=== PATIENT | female | born 1940 | race Caucasian/White ===

== ENCOUNTER 2017-10-06 17:06 | Inpatient (IN) | payer OTHER ==
[~2017-10-06] VITALS: Ht 160 cm; Wt 59.0 kg
[2017-10-06] MEDS ORDERED: NEXIUM40 MG ORAL (17:27)
[2017-10-06] MEDS ORDERED: URECHOLINE50 MG ORAL (17:27)
[2017-10-06] MEDS ORDERED: PERCOCET 5-3251 EACH ORAL (17:27)
[2017-10-06] MEDS ORDERED: lopressor PO (17:27)
[2017-10-06] MEDS ORDERED: ACIDOPHILUS LA1 EAC1 ORAL (17:27)
[2017-10-06] MEDS ORDERED: ATORVASTATIN CA10 MG ORAL (17:27)
[2017-10-06] MEDS ORDERED: DOCUSATE SODIU100 MG ORAL (17:27)
[2017-10-06] MEDS ORDERED: LOTENSIN20 MG ORAL (17:27)
[2017-10-06] MEDS ORDERED: TERAZOSIN HCL1 MG ORAL (17:27)
[2017-10-06] MEDS ORDERED: XARELTO10 MG ORAL (17:27)
[2017-10-06] MEDS ORDERED: BISACODYL10 M1 RC (17:31)
[2017-10-06] MEDS ORDERED: BACLOFEN10 MG ORAL (17:31)
[2017-10-06] MEDS ORDERED: ZOFRAN4 M3 ORAL (17:31)
[2017-10-06] MEDS ORDERED: apresoline PO (17:31)
[2017-10-06] MEDS ORDERED: LACTULOSE20 GM/301 ORAL (17:31)
[2017-10-06] MEDS ORDERED: NOVOLIN R100 UNIT/1 SUBQ (17:32)
[2017-10-06] MEDS ORDERED: DAPTOMYCIN500 MG IV (17:38)
[2017-10-06] MEDS ORDERED: PRO STAT SUGAR FREE PO (17:38)
[2017-10-06] MEDS ORDERED: CRANBERRY450 M4 PO (17:39)
[2017-10-06] MEDS ORDERED: DIGOXIN125 MCG ORAL (17:39)
[2017-10-06] MEDS ORDERED: LANTUS SOL100 UNIT/1 SUBQ (17:39)
[2017-10-06] MEDS ORDERED: SOLARAZE100 GM TP (17:39)
[2017-10-06] MEDS ORDERED: MULTIVITAMINS1 EAC8 ORAL (17:39)
[2017-10-06] MEDS ORDERED: HPN PO (17:39)
--- NOTE | 2017-10-06 17:46 | Emergency Room Report ---
History of Present Illness General Chief Complaint: Female Urogenital Problems Source: Medical Record, EMS Present Illness HPI 76-year-old female presents ED for evaluation. Patient of shelter. Complains of burning urination x1 day. Denies fevers or chills. Denies flank pain. Denies nausea or vomiting. Denies chest pain or shortness of breath. No other aggravating relieving factors. Denies any other associated symptoms Allergies: Coded Allergies: No Known Allergies (Unverified , 10/06/17) Patient History Past Medical History: DM, HTN Past Surgical History: none Pertinent Family History: none Social History: Denies: smoking, alcohol use, drug use Now: No Immunizations: UTD Reviewed Nursing Documentation: PMH: Agreed, PSxH: Agreed Nursing Documentation-PMH Past Medical History: No History, Except For Hx Cardiac Problems: Yes - CHF, AFib, High Cholesterol, Anemia Hx Hypertension: Yes Hx Diabetes: Yes Hx Dialysis: No - Urine retention Review of Systems All Other Systems: negative except mentioned in HPI Physical Exam Vital Signs Date Time Temp Pulse Resp B/P (MAP) Pulse Ox O2 Delivery O2 Flow Rate FiO2 10/06/17 17:09 98.7 62 18 127/69 95 Room Air 98.8 Sp02 EP Interpretation: reviewed, normal General Appearance: no apparent distress, alert, GCS 15, non-toxic Head: normocephalic, atraumatic Eyes: bilateral eye normal inspection, bilateral eye PERRL ENT: hearing grossly normal, normal pharynx, no angioedema, normal voice Neck: full range of motion, supple/symm/no masses Respiratory: chest non-tender, lungs clear, normal breath sounds, speaking full sentences Cardiovascular #1: regular rate, rhythm, no edema Cardiovascular #2: 2+ carotid (R), 2+ carotid (L), 2+ radial (R), 2+ radial (L) , 2+ dorsalis pedis (R), 2+ dorsalis pedis (L) Gastrointestinal: normal bowel sounds, non tender, soft, non-distended, no guarding, no rebound Rectal: deferred Genitourinary: normal inspection, no CVA tenderness Musculoskeletal: back normal, gait/station normal, normal range of motion, non- tender Neurologic: alert, oriented x3, responsive, sensory intact, speech normal Psychiatric: judgement/insight normal, memory normal, mood/affect normal, no suicidal/homicidal ideation Reflexes: 3+ bicep (R), 3+ bicep (L), 3+ tricep (R), 3+ tricep (L), 3+ knee (R) , 3+ knee (L) Skin: normal color, no rash, warm/dry, well hydrated Lymphatic: no adenopathy Medical Decision Making Diagnostic Impression: Primary Impression: Dehydration Additional Impressions: UTI (urinary tract infection) Qualified Codes: N39.0 - Urinary tract infection, site not specified Anemia Qualified Codes: D64.9 - Anemia, unspecified ER Course Hospital Course 76-year-old female presenting to ED with generalized weakness, dysuria Differential diagnoses include: Pneumonia, UTI, sepsis, dehydration, AR/ unstable angina Clinical course Patient placed on stretcher. On lunchroom monitor with stable vitals are ED course. After initial history and physical, I ordered labs, IV fluids, EKG, chest x-ray, blood cultures, UA. Labs -Na 128, noted leukocytosis, Hb/hct 8/24.6, troponins negative, UA grossly positive for UTI EKG - afib, no acute ischemic changes interpreted bym e CXR - no acute process , cardiomegaly IVFs given, Abx given. Case discussed with Dr Bethea and they agreed to admit patient to their service for further care and support I feel this is a highly complex case requiring extensive working including EKG/ Rhythm strip, Xray/CT/US, Blood/urine lab work, repeat exams while in ED, and administration of strong opiates/narcotics for pain control, admission to hospital or close patient follow up. Diagnosis - UTI, dehydration, anemia Patient admitted to floor in serious condition Labs Test 10/06/17 18:10 10/06/17 18:45 White Blood Count 12.6 K/UL (4.8-10.8) Red Blood Count 3.20 M/UL (4.20-5.40) Hemoglobin 8.0 G/DL (12.0-16.0) Hematocrit 24.6 % (37.0-47.0) Mean Corpuscular Volume 77 FL (80-99) Mean Corpuscular Hemoglobin 25.0 PG (27.0-31.0) Mean Corpuscular Hemoglobin Concent 32.4 G/DL (32.0-36.0) Red Cell Distribution Width 16.2 % (11.6-14.8) Platelet Count 429 K/UL (150-450) Mean Platelet Volume 5.7 FL (6.5-10.1) Neutrophils (%) (Auto) 72.6 % (45.0-75.0) Lymphocytes (%) (Auto) 17.4 % (20.0-45.0) Monocytes (%) (Auto) 7.0 % (1.0-10.0) Eosinophils (%) (Auto) 2.4 % (0.0-3.0) Basophils (%) (Auto) 0.6 % (0.0-2.0) Sodium Level 128 MMOL/L (136-145) Potassium Level 4.6 MMOL/L (3.5-5.1) Chloride Level 97 MMOL/L (98-107) Carbon Dioxide Level 26 MMOL/L (21-32) Anion Gap 5 mmol/L (5-15) Blood Urea Nitrogen 20 mg/dL (7-18) Creatinine 1.2 MG/DL (0.55-1.30) Estimat Glomerular Filtration Rate mL/min (>60) Glucose Level 110 MG/DL (74-106) Lactic Acid Level 0.60 mmol/L (0.66-2.22) Calcium Level 8.1 MG/DL (8.5-10.1) Total Bilirubin 0.3 MG/DL (0.2-1.0) Aspartate Amino Transf (AST/SGOT) 12 U/L (15-37) Alanine Aminotransferase (ALT/SGPT) 6 U/L (12-78) Alkaline Phosphatase 94 U/L (46-116) Total Creatine Kinase 16 U/L (26-308) Creatine Kinase MB 0.6 NG/ML (0.0-3.6) Creatine Kinase MB Relative Index 3.7 Troponin I 0.001 ng/mL (0.000-0.056) Pro-B-Type Natriuretic Peptide 71305 pg/mL (0-125) Total Protein 6.7 G/DL (6.4-8.2) Albumin 1.5 G/DL (3.4-5.0) Globulin 5.2 g/dL Albumin/Globulin Ratio 0.3 (1.0-2.7) Urine Color Yellow Urine Appearance Slightly cloudy Urine pH 8 (4.5-8.0) Urine Specific [place] 1.010 (1.005-1.035) Urine Protein 3+ (NEGATIVE) Urine Glucose (UA) Negative (NEGATIVE) Urine Ketones Negative (NEGATIVE) Urine Occult Blood 4+ (NEGATIVE) Urine Nitrite Negative (NEGATIVE) Urine Bilirubin Negative (NEGATIVE) Urine Urobilinogen Normal MG/DL (0.0-1.0) Urine Leukocyte Esterase 3+ (NEGATIVE) Urine RBC 15-20 /HPF (0 - 2) Urine WBC 10-15 /HPF (0 - 2) Urine Squamous Epithelial Cells Few /LPF (NONE/OCC) Urine Amorphous Sediment Few /LPF (NONE) Urine Bacteria Moderate /HPF (NONE) EKG Diagnostic Results Rate: normal Rhythm: other - afib ST Segments: no acute changes ASA given to the pt in ED: No Rhythm Strip Diag. Results Rhythm: no PVC's, no ectopy Chest X-Ray Diagnostic Results Chest X-Ray Diagnostic Results : Chest X-Ray Ordered: Yes # of Views/Limited/Complete: 1 View Indication: Other - weakness EP Interpretation: Yes Interpretation: no consolidation, no effusion, no pneumothorax Impression: Other - cardiomealy Electronically Signed by: Electronically signed by Mike Barkley MD Last Vital Signs Date Time Temp Pulse Resp B/P (MAP) Pulse Ox O2 Delivery O2 Flow Rate FiO2 10/06/17 17:09 98.7 62 18 127/69 95 Room Air 98.8 Status: improved Disposition: ADMITTED INPATIENT Condition: Serious MIKE BARKLEY M.D. Oct 06, 2017 17:46
[2017-10-06 18:47] LABS: BASOPHILS % (AUTO) 0.6 % (0.0-2.0); EOSINOPHILS % (AUTO) 2.4 % (0.0-3.0); HEMATOCRIT 24.6 % (37.0-47.0); LYMPHOCYTES % (AUTO) 17.4 % (20.0-45.0); MEAN CORPUSCULAR VOLUME 77 FL (80-99); NEUTROPHILS % (AUTO) 72.6 % (45.0-75.0); PLATELET COUNT 429 K/UL (150-450); RED CELL DISTRIBUTION WIDTH 16.2 % (11.6-14.8); WHITE BLOOD COUNT 12.6 K/UL (4.8-10.8)
[2017-10-06 18:50] VITALS: BP 122/57
[2017-10-06 19:02] LABS: APPEARANCE,URINE SLIGHTLY CLOUDY; BILIRUBIN, URINE NEGATIVE (NEGATIVE); GLUCOSE, URINE (UA) NEGATIVE (NEGATIVE); KETONES,URINE NEGATIVE (NEGATIVE); LEUKOCYTE ESTERASE ,URINE 3+ (NEGATIVE); NITRITE,URINE NEGATIVE (NEGATIVE); PH,URINE 8 (4.5-8.0); PROTEIN,URINE 3+ (NEGATIVE); UROBILINOGEN,URINE NORMAL MG/DL (0.0-1.0)
[2017-10-06 19:05] LABS: COLOR,URINE YELLOW
[2017-10-06 19:06] LABS: ANION GAP 5 mmol/L (5-15); BLOOD UREA NITROGEN 20 mg/dL (7-18); CALCIUM 8.1 MG/DL (8.5-10.1); CARBON DIOXIDE 26 MMOL/L (21-32); CHLORIDE 97 MMOL/L (98-107); CREATININE 1.2 MG/DL (0.55-1.30); POTASSIUM 4.6 MMOL/L (3.5-5.1); SODIUM 128 MMOL/L (136-145)
[2017-10-06 19:19] LABS: ALANINE AMINOTRANSFERASE 6 U/L (12-78); ALBUMIN 1.5 G/DL (3.4-5.0); ALBUMIN/GLOBULIN RATIO 0.3 (1.0-2.7); ALKALINE PHOSPHATASE 94 U/L (46-116); ASPARTATE AMINO TRANSFERASE 12 U/L (15-37); BILIRUBIN,TOTAL 0.3 MG/DL (0.2-1.0); CKMB 0.6 NG/ML (0.0-3.6); CREATINE KINASE 16 U/L (26-308)
[2017-10-06] MEDS ORDERED: cefTRIAXone 1 GM in NS 55 ML IVPB ONE (19:30)
[2017-10-06] MEDS ORDERED: Morphine Sulfate 4mg/ml Inj IVP ONE (19:45)
[2017-10-06 20:50] VITALS: BP 117/57
[2017-10-06 22:50] VITALS: BP 95/57
[2017-10-07] VITALS: BP 121/61
[2017-10-07] MEDS ORDERED: HydrALAZINE 25mg tab ORAL PRN (01:30)
[2017-10-07] MEDS ORDERED: Lactulose 20gm/30ml UDC ORAL PRN (01:30)
[2017-10-07] MEDS: oxyCODONE HCL/Acetaminophen 5/325mg ORAL PRN ×2 (02:30→09:39)
[2017-10-07 04:00] VITALS: BP 107/75
[2017-10-07] MEDS ORDERED: Piperacillin/Tazobactam 3.375 GM in D5W 110 ML IVPB SCH (06:00)
[2017-10-07] MEDS ORDERED: Zosyn 3.375gm inj ONE (06:04)
[2017-10-07] MEDS: NovoLOG Insulin Flexpen SUBQ SCH ×4 (06:11→21:17)
[2017-10-07 08:00] VITALS: BP 140/84
[2017-10-07] MEDS: Lactobacillus-GG tablet ORAL SCH (08:27)
[2017-10-07] MEDS: Docusate 100mg cap ORAL SCH ×2 (08:27→18:16)
[2017-10-07] MEDS: Digoxin 0.125mg tab ORAL SCH (08:28)
[2017-10-07] MEDS: Bethanechol 25mg Tab ORAL SCH ×4 (08:28→21:08)
[2017-10-07] MEDS: Metoprolol 25mg tab ORAL SCH ×2 (08:42→21:07)
[2017-10-07] MEDS ORDERED: Heparin 5000 units/ml inj SUBQ SCH (09:00)
--- NOTE | 2017-10-07 09:12 | Diagnostic Imaging Report ---
Indication: Dyspnea Technique: One view of the chest Comparison: none Findings: The heart is enlarged. There is probably a small left pleural effusion. No infiltrates or congestion. The aorta is tortuous and calcified Impression: Cardiomegaly Small left pleural effusion
[2017-10-07 09:22] LABS: BASOPHILS % (AUTO) 0.5 % (0.0-2.0); EOSINOPHILS % (AUTO) 1.8 % (0.0-3.0); HEMATOCRIT 26.3 % (37.0-47.0); HEMOGLOBIN 8.4 G/DL (12.0-16.0); LYMPHOCYTES % (AUTO) 8.8 % (20.0-45.0); MEAN CORPUSCULAR VOLUME 77 FL (80-99); MONOCYTES % (AUTO) 7.3 % (1.0-10.0); NEUTROPHILS % (AUTO) 81.6 % (45.0-75.0); PLATELET COUNT 473 K/UL (150-450); RED CELL DISTRIBUTION WIDTH 16.1 % (11.6-14.8); WHITE BLOOD COUNT 13.2 K/UL (4.8-10.8)
[2017-10-07 09:32] LABS: ANION GAP 6 mmol/L (5-15); BLOOD UREA NITROGEN 16 mg/dL (7-18); CALCIUM 8.1 MG/DL (8.5-10.1); CARBON DIOXIDE 26 MMOL/L (21-32); CHLORIDE 97 MMOL/L (98-107); CREATININE 1.1 MG/DL (0.55-1.30); POTASSIUM 4.3 MMOL/L (3.5-5.1); SODIUM 129 MMOL/L (136-145)
[2017-10-07 09:52] LABS: IRON 8 ug/dL (50-175); TOTAL IRON BINDING CAPACITY 107 ug/dL (250-450)
[2017-10-07 09:53] LABS: % IRON SATURATION 7 % (15-50)
[2017-10-07 12:00] VITALS: BP 137/69
[2017-10-07] MEDS: Piperacillin/Tazobactam 3.375 GM in NS 110 ML IVPB SCH ×2 (14:32→21:55)
--- NOTE | 2017-10-07 15:15 | History and Physical Report ---
DATE OF ADMISSION: 10/06/2017 CHIEF COMPLAINT: Dysuria, generalized weakness, and malaise. HISTORY OF PRESENT ILLNESS: The patient is a 76-year-old female. She has a history of osteoporosis, atrial fibrillation, history of congestive heart failure, anemia, diabetes, dyslipidemia, and stroke. 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 She received a full course of treatment for her endocarditis and osteomyelitis. Her most active issues have been back pain related to compression fractures from a prior fall. She was transferred from a custodial facility with complaints of generalized malaise, weakness, and dysuria. On evaluation in the emergency room, the patient did have 10 to 15 WBCs in urine, was felt to have a urinary tract infection. She had a white count of 12 and hemoglobin was low at 8. She also was noted to be hyponatremic with a sodium of 128. The patient has been cultured and is now admitted for further evaluation and care. PAST MEDICAL HISTORY: As above. PAST SURGICAL HISTORY: None. CURRENT MEDICATIONS: Reconciled and reviewed. ALLERGIES: None. FAMILY HISTORY: None. SOCIAL HISTORY: Negative for tobacco, ethanol, or drugs. REVIEW OF SYSTEMS: Negative except for back pain. No dysuria. PHYSICAL EXAMINATION: VITAL SIGNS: Temperature was 98.5, pulse 87, respirations 20, and blood pressure 140/84. GENERAL: The patient is well developed, no apparent distress. HEART: Regular rate and rhythm. LUNGS: Clear. ABDOMEN: Soft, nontender, and nondistended. EXTREMITIES: Without clubbing, cyanosis, or edema. LABORATORY DATA: UA showed 10 to 15 WBCs. White count was 13, hemoglobin 8, hematocrit 24, and platelet count 429. Sodium 128, creatinine is 1.2. Natriuretic peptide level was 15. Chest x-ray report showed . ASSESSMENT: This is a pleasant female admitted with complaints of dysuria, secondary to urinary tract infection. She has a recent history of endocarditis, osteomyelitis, hypertension, and diabetes. She has microcytic anemia that appears to be chronic as well as chronic compression fracture of the spine and diabetes. PLAN: We will check blood cultures. Followup urinalysis and urine culture results. Broad-spectrum antibiotic therapy. A 2D echo has been ordered. ID consultation will be obtained. Otherwise continue the patient's outpatient medications. Plan of care was discussed with the patient's daughter. Wilfrido Gonzalez M.D. DR: ALEKSEY JOB#: [id number] CC:
[2017-10-07 15:22] VITALS: BP 110/65
--- NOTE | 2017-10-07 15:27 | Wound Care Consultation ---
Wound Assessment Wound Assessment : Wound Number: 1 Wound Present on Admission: Yes New Wound: No Status Change of Wound: No Wound Location Body Site Modif: lower Wound Location Body Site: back Wound Type: other - denuded Sander Test: Does not Sander Wound Thickness: Partial Thickness Wound Length: 6.0 Wound Width: 10.5 Wound Depth: less than 0.1 Percent of Wound [place]/Red: 100 Wound Drainage Description: Serosanguineous Wound Drainage Amount: Scant Wound Drainage Odor: None/Absent Tissue Surrounding Wound: Intact Wound General Appearance: Reddened, Draining Wound Comment #1 Lower back denuded skin with Partial thickness skin loss Recommendation -Cleanse with saline, pat dry, apply Triad cream to wound bed, cover with Biatain silicone drg daily and PRN soiled/dislodged -Keep clean and dry -Turn and reposition -Heel protector on both heels -Offload both heels -Low air loss mattress -Optimize nutrition -Assess and f/u accordingly for any changes SHAHEED MAHAJAN RN Oct 07, 2017 15:27
[2017-10-07] MEDS: Xarelto 15mg tab ORAL SCH (16:42)
[2017-10-07 20:00] VITALS: BP 151/82
[2017-10-07] MEDS: Levemir Flexpen SUBQ SCH (21:11)
--- NOTE | 2017-10-07 21:15 | Infectious Diseases Prog Note ---
Assessment/Plan Assessment/Plan Full consult to follow; A) 1) uti 2) hx endocarditis and osteo, s/p full tx course 3) allergies - negative P) 1) zosyn 2) check urine culture 3) check surveillance blood cultures 4) thank you Subjective Allergies: Coded Allergies: No Known Allergies (Unverified , 10/06/17) Objective Vital Signs Last 24 Hour Vital Signs Date Time Temp Pulse Resp B/P (MAP) Pulse Ox O2 Delivery O2 Flow Rate FiO2 10/07/17 20:00 100.3 85 20 151/82 96 10/07/17 15:22 98.5 71 19 110/65 96 10/07/17 12:00 98.6 57 20 137/69 97 10/07/17 08:42 93 115/57 10/07/17 08:28 93 10/07/17 08:27 115/57 10/07/17 08:00 98.5 87 20 140/84 96 10/07/17 04:00 97.6 60 18 107/75 96 10/07/17 00:00 97.5 60 20 121/61 95 10/06/17 23:35 98.0 59 17 98/55 95 Room Air 98.0 10/06/17 22:50 98.0 57 17 95/57 98 Room Air 98.0 Height (Feet): 5 Height (Inches): 3.00 Weight (Pounds): 130 Microbiology Date/Time Source Procedure Growth Status 10/06/17 18:45 Urine,Clean Catch Urine Culture - Preliminary Resulted Laboratory Tests Test 10/07/17 08:50 10/07/17 09:15 White Blood Count 13.2 K/UL (4.8-10.8) H Red Blood Count 3.40 M/UL (4.20-5.40) L Hemoglobin 8.4 G/DL (12.0-16.0) L Hematocrit 26.3 % (37.0-47.0) L Mean Corpuscular Volume 77 FL (80-99) L Mean Corpuscular Hemoglobin 24.6 PG (27.0-31.0) L Mean Corpuscular Hemoglobin Concent 31.8 G/DL (32.0-36.0) L Red Cell Distribution Width 16.1 % (11.6-14.8) H Platelet Count 473 K/UL (150-450) H Mean Platelet Volume 5.9 FL (6.5-10.1) L Neutrophils (%) (Auto) 81.6 % (45.0-75.0) H Lymphocytes (%) (Auto) 8.8 % (20.0-45.0) L Monocytes (%) (Auto) 7.3 % (1.0-10.0) Eosinophils (%) (Auto) 1.8 % (0.0-3.0) Basophils (%) (Auto) 0.5 % (0.0-2.0) Sodium Level 129 MMOL/L (136-145) L Potassium Level 4.3 MMOL/L (3.5-5.1) Chloride Level 97 MMOL/L (98-107) L Carbon Dioxide Level 26 MMOL/L (21-32) Anion Gap 6 mmol/L (5-15) Blood Urea Nitrogen 16 mg/dL (7-18) Creatinine 1.1 MG/DL (0.55-1.30) Estimat Glomerular Filtration Rate mL/min (>60) Glucose Level 134 MG/DL (74-106) H Calcium Level 8.1 MG/DL (8.5-10.1) L Iron Level 8 ug/dL (50-175) L Total Iron Binding Capacity 107 ug/dL (250-450) L Percent Iron Saturation 7 % (15-50) L Unsaturated Iron Binding 99 ug/dL (112-346) L Current Medications Medications (Trade) Dose Ordered Sig/Candice Route PRN Reason Start Time Stop Time Status Last Admin Dose Admin Acetaminophen (Tylenol) 650 mg Q4H PRN ORAL Mild Pain/Temp > 100.5 10/07/17 01:30 11/06/17 01:29 Atorvastatin Calcium (Lipitor) 10 mg BEDTIME ORAL 10/07/17 21:00 11/06/17 20:59 Baclofen (Lioresal) 10 mg THREE TIMES A DAY PRN ORAL for pain 10/07/17 01:30 11/06/17 01:29 Benazepril HCl (Lotensin) 20 mg DAILY ORAL 10/07/17 09:00 11/06/17 08:59 10/07/17 08:27 Bethanechol Chloride (Urecholine) 50 mg FOUR TIMES A DAY ORAL 10/07/17 09:00 11/06/17 08:59 10/07/17 18:16 Bisacodyl (Dulcolax) 10 mg DAILYPRN PRN RECTAL Constipation 10/07/17 01:30 11/06/17 01:29 Dextrose (Dextrose 50%) STAT PRN IV Hypoglycemia 10/07/17 02:15 11/06/17 02:14 Digoxin (Lanoxin) 0.125 mg DAILY ORAL 10/07/17 09:00 11/06/17 08:59 10/07/17 08:28 Docusate Sodium (Colace) 100 mg TWICE A DAY ORAL 10/07/17 09:00 11/06/17 08:59 10/07/17 18:16 Hydralazine HCl (Apresoline) 25 mg Q8H PRN ORAL high blood pressure 10/07/17 01:30 11/06/17 01:29 Insulin Aspart (NovoLOG) BEFORE MEALS AND HS SUBQ 10/07/17 06:30 11/06/17 06:29 10/07/17 16:43 Insulin Detemir (Levemir) 19 units BEDTIME SUBQ 10/07/17 21:00 11/06/17 20:59 Lactobacillus Acidophilus (Culturelle) 1 tab DAILY ORAL 10/07/17 09:00 11/06/17 08:59 10/07/17 08:27 Lactulose (Cephulac) 30 gm DAILY PRN ORAL constipation 10/07/17 01:30 11/06/17 01:29 Metoprolol Tartrate (Lopressor) 75 mg Q12HR ORAL 10/07/17 09:00 11/06/17 08:59 10/07/17 08:42 Multivitamins (Multivitamins) 1 tab DAILY ORAL 10/07/17 09:00 11/06/17 08:59 10/07/17 08:26 Ondansetron HCl (Zofran) 4 mg Q6H PRN IVP Nausea & Vomiting 10/07/17 01:30 11/06/17 01:29 Oxycodone/ Acetaminophen (Percocet 5-325) 1 tab Q4H PRN ORAL for pain 10/07/17 01:30 10/14/17 01:29 10/07/17 09:39 Pantoprazole (Protonix) 40 mg DAILY ORAL 10/07/17 09:00 11/06/17 08:59 10/07/17 08:26 Piperacillin Sod/ Tazobactam Sod 3.375 gm/Sodium Chloride 110 ml @ 27.5 mls/hr EVERY 8 HOURS IVPB 10/07/17 14:00 10/14/17 13:59 10/07/17 14:32 Rivaroxaban (Xarelto) 15 mg QPM ORAL 10/07/17 16:30 11/06/17 16:29 10/07/17 16:42 Sodium Chloride 1,000 ml @ 100 mls/hr Q10H IV 10/07/17 02:30 11/06/17 02:29 10/07/17 12:47 DONA VERA Oct 07, 2017 21:15
[2017-10-08] VITALS: BP 146/59
[2017-10-08 04:00] VITALS: BP 146/82
[2017-10-08] MEDS: Piperacillin/Tazobactam 3.375 GM in NS 110 ML IVPB SCH ×3 (06:22→21:54)
[2017-10-08] MEDS: NovoLOG Insulin Flexpen SUBQ SCH ×4 (06:25→21:14)
--- NOTE | 2017-10-08 07:50 | General Progress Note ---
Assessment/Plan Problem List: (1) Anemia ICD Codes: D64.9 - Anemia, unspecified SNOMED: 230943752 Qualifiers: Qualified Codes: D64.9 - Anemia, unspecified (2) Dehydration ICD Codes: E86.0 - Dehydration SNOMED: 69764427 (3) UTI (urinary tract infection) ICD Codes: N39.0 - Urinary tract infection, site not specified SNOMED: 10210752 Qualifiers: Qualified Codes: N39.0 - Urinary tract infection, site not specified Status: stable, progressing Assessment/Plan iv Abx follow up ucx Subjective ROS Limited/Unobtainable: No Constitutional: Reports: malaise, weakness HEENT: Reports: no symptoms Cardiovascular: Reports: no symptoms Respiratory: Reports: no symptoms Gastrointestinal/Abdominal: Reports: no symptoms Genitourinary: Reports: no symptoms Neurologic/Psychiatric: Reports: no symptoms Endocrine: Reports: no symptoms Hematologic/Lymphatic: Reports: anemia Allergies: Coded Allergies: No Known Allergies (Unverified , 10/06/17) All Systems: reviewed and negative except above Subjective no events. feels better. ucx with gnr Objective Last 24 Hour Vital Signs Date Time Temp Pulse Resp B/P (MAP) Pulse Ox O2 Delivery O2 Flow Rate FiO2 10/08/17 04:00 Room Air 10/08/17 04:00 98.1 63 20 146/82 95 10/08/17 00:00 99.5 60 20 146/59 97 10/08/17 00:00 Room Air 10/07/17 21:07 85 151/82 10/07/17 20:00 100.3 85 20 151/82 96 10/07/17 20:00 Room Air 10/07/17 15:22 98.5 71 19 110/65 96 10/07/17 12:00 98.6 57 20 137/69 97 10/07/17 08:42 93 115/57 10/07/17 08:28 93 10/07/17 08:27 115/57 10/07/17 08:00 98.5 87 20 140/84 96 Intake and Output 10/07/17 10/08/17 19:00 07:00 Intake Total 460 ml 1110.0 ml Output Total 400 ml 750 ml Balance 60 ml 360.0 ml Intake Oral 360 ml IV Total 100 ml 1110.0 ml Output Urine Total 400 ml 750 ml Laboratory Tests 2/19/18 08:50: White Blood Count 13.2H, Red Blood Count 3.40L, Hemoglobin 8.4L, Hematocrit 26.3L, Mean Corpuscular Volume 77L, Mean Corpuscular Hemoglobin 24.6L, Mean Corpuscular Hemoglobin Concent 31.8L, Red Cell Distribution Width 16.1H, Platelet Count 473H, Mean Platelet Volume 5.9L, Neutrophils (%) (Auto) 81.6H, Lymphocytes (%) (Auto) 8.8L, Monocytes (%) (Auto) 7.3, Eosinophils (%) (Auto) 1.8, Basophils (%) (Auto) 0.5, Sodium Level 129L, Potassium Level 4.3, Chloride Level 97L, Carbon Dioxide Level 26, Anion Gap 6, Blood Urea Nitrogen 16, Creatinine 1.1, Estimat Glomerular Filtration Rate , Glucose Level 134H, Calcium Level 8.1L 10/07/17 09:15: Iron Level 8L, Total Iron Binding Capacity 107L, Percent Iron Saturation 7L, Unsaturated Iron Binding 99L Height (Feet): 5 Height (Inches): 3.00 Weight (Pounds): 130 General Appearance: WD/WN, alert Neck: supple Cardiovascular: regular rhythm Respiratory/Chest: chest wall non-tender, lungs clear, normal breath sounds 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
[2017-10-08 08:16] VITALS: BP 146/62
--- NOTE | 2017-10-08 08:18 | Cardiology Report ---
APPROVED REPORT EXAM: Two-dimensional and M-mode echocardiogram with Doppler and color Doppler. INDICATION Atrial Flutter M-Mode DIMENSIONS IVSd1.2 (0.7-1.1cm)Left Atrium (MM)5.4 (1.6-4.0cm) LVDd3.5 (3.5-5.6cm)Aortic Root3.1 (2.0-3.7cm) PWd1.3 (0.7-1.1cm)Aortic Cusp Exc.1.5 (1.5-2.0cm) LVDs1.5 (2.5-4.0cm) PWs1.3 cm Normal left ventricular chamber size, systolic function and wall motion. Left ventricular ejection fraction estimated to be 55-60 %. Mild left ventricular hypertrophy. Anterior Echo-free space, may be due to pericardial fat or effusion. Moderate left atrial enlargement. Mild right ventricular enlargement. Right atrial chamber size is within normal limits. Focal aortic valve sclerosis with adequate cusp excursion. Mildly thickened mitral valve leaflets with normal excursion. Mild mitral annulus and aortic root calcification. Normal pulmonic valve structure. Normal tricuspid valve structure. IVC dilated at 2.1 cm with physiologic collapse suggestive of increased RA pressure. A color flow and spectral Doppler study was performed and revealed: Mild aortic regurgitation. Peak aortic valve gradient of 20 mmHg and a mean of 8 mmHg. Aortic valve area 1.5 cm2 calculated by continuity equation. Mild mitral regurgitation. Diastolic data cannot be assessed due to the underlying atrial fibrillation. Mild tricuspid regurgitation. Tricuspid systolic velocities suggests peak right ventricular systolic pressure of 56 mmHg, consistent with moderate pulmonary hypertension. No pulmonic regurgitation present.
--- NOTE | 2017-10-08 08:36 | Cardiology Report ---
APPROVED REPORT EKG Measurement Heart [id number] Atrial fibrillation with slow ventricular response Abnormal ECG
[2017-10-08 08:40] LABS: HEMATOCRIT 22.8 % (37.0-47.0); HEMOGLOBIN 7.4 G/DL (12.0-16.0); MEAN CORPUSCULAR VOLUME 77 FL (80-99); PLATELET COUNT 407 K/UL (150-450); RED BLOOD COUNT 2.94 M/UL (4.20-5.40); RED CELL DISTRIBUTION WIDTH 16.3 % (11.6-14.8); WHITE BLOOD COUNT 10.5 K/UL (4.8-10.8)
[2017-10-08 09:04] LABS: ALANINE AMINOTRANSFERASE 10 U/L (12-78); ALBUMIN 1.4 G/DL (3.4-5.0); ALBUMIN/GLOBULIN RATIO 0.3 (1.0-2.7); ALKALINE PHOSPHATASE 88 U/L (46-116); ANION GAP 5 mmol/L (5-15); ASPARTATE AMINO TRANSFERASE 10 U/L (15-37); BILIRUBIN,TOTAL 0.2 MG/DL (0.2-1.0); BLOOD UREA NITROGEN 12 mg/dL (7-18); CALCIUM 8.1 MG/DL (8.5-10.1); CARBON DIOXIDE 26 MMOL/L (21-32); CHLORIDE 100 MMOL/L (98-107); CREATININE 1.1 MG/DL (0.55-1.30); POTASSIUM 3.8 MMOL/L (3.5-5.1); SODIUM 131 MMOL/L (136-145)
[2017-10-08] MEDS: Digoxin 0.125mg tab ORAL SCH (09:25)
[2017-10-08] MEDS: Docusate 100mg cap ORAL SCH ×2 (09:25→18:23)
[2017-10-08] MEDS: Lactobacillus-GG tablet ORAL SCH (09:25)
[2017-10-08] MEDS: Bethanechol 25mg Tab ORAL SCH ×4 (09:31→21:10)
[2017-10-08] MEDS: Metoprolol 25mg tab ORAL SCH (09:43)
[2017-10-08 11:45] VITALS: BP 144/60
[2017-10-08] MEDS: oxyCODONE HCL/Acetaminophen 5/325mg ORAL PRN ×2 (12:31→18:28)
--- NOTE | 2017-10-08 15:05 | Infectious Diseases Prog Note ---
Assessment/Plan Assessment/Plan A) 1) gram neg uti, sepsis, leukocytosis, fevers 2) hx endocarditis and osteo, s/p full tx course 3) allergies - negative P) 1) zosyn 2) check urine culture 3) check surveillance blood cultures 4) will f/u Subjective Constitutional: Denies: fever HEENT: Denies: congestion Respiratory: Denies: shortness of breath Cardiovascular: Denies: chest pain Gastrointestinal/Abdominal: Denies: nausea, vomiting, diarrhea Allergies: Coded Allergies: No Known Allergies (Unverified , 10/06/17) Objective Vital Signs Last 24 Hour Vital Signs Date Time Temp Pulse Resp B/P (MAP) Pulse Ox O2 Delivery O2 Flow Rate FiO2 10/08/17 11:45 97.5 75 20 144/60 95 10/08/17 09:43 73 146/62 10/08/17 09:25 146/62 10/08/17 09:25 73 10/08/17 08:16 97.3 73 20 146/62 96 10/08/17 04:00 Room Air 10/08/17 04:00 98.1 63 20 146/82 95 10/08/17 00:00 99.5 60 20 146/59 97 10/08/17 00:00 Room Air 10/07/17 21:07 85 151/82 10/07/17 20:00 100.3 85 20 151/82 96 10/07/17 20:00 Room Air 10/07/17 15:22 98.5 71 19 110/65 96 Height (Feet): 5 Height (Inches): 3.00 Weight (Pounds): 130 General Appearance: no acute distress HEENT: normocephalic, atraumatic, anicteric, mucous membranes moist Respiratory/Chest: lungs clear, normal breath sounds, no respiratory distress, no accessory muscle use Cardiovascular: normal rate, regular rhythm Abdomen: normal bowel sounds, soft, non tender, no organomegaly Microbiology Date/Time Source Procedure Growth Status 10/06/17 18:10 Blood Blood Culture - Preliminary NO GROWTH AFTER 24 HOURS Resulted 10/06/17 18:00 Blood Blood Culture - Preliminary NO GROWTH AFTER 24 HOURS Resulted 10/06/17 18:40 Nasal Nares MRSA Culture - Final NO METHICILLIN RESISTANT STAPH AUREUS... Complete 10/06/17 18:45 Urine,Clean Catch Urine Culture - Preliminary Gram Negative Bacillus 1 Gram Negative Bacillus 2 Resulted 10/06/17 18:40 Rectal Mucosa VRE Culture - Final NO VANCOMYCIN RESISTANT ENTEROCOCCUS ... Complete Laboratory Tests Test 10/08/17 06:55 White Blood Count 10.5 K/UL (4.8-10.8) Red Blood Count 2.94 M/UL (4.20-5.40) L Hemoglobin 7.4 G/DL (12.0-16.0) L Hematocrit 22.8 % (37.0-47.0) L Mean Corpuscular Volume 77 FL (80-99) L Mean Corpuscular Hemoglobin 25.2 PG (27.0-31.0) L Mean Corpuscular Hemoglobin Concent 32.6 G/DL (32.0-36.0) Red Cell Distribution Width 16.3 % (11.6-14.8) H Platelet Count 407 K/UL (150-450) Mean Platelet Volume 5.7 FL (6.5-10.1) L Neutrophils (%) (Auto) % (45.0-75.0) Lymphocytes (%) (Auto) % (20.0-45.0) Monocytes (%) (Auto) % (1.0-10.0) Eosinophils (%) (Auto) % (0.0-3.0) Basophils (%) (Auto) % (0.0-2.0) Differential Total Cells Counted 100 Neutrophils % (Manual) 70 % (45-75) Lymphocytes % (Manual) 20 % (20-45) Monocytes % (Manual) 5 % (1-10) Eosinophils % (Manual) 2 % (0-3) Basophils % (Manual) 0 % (0-2) Metamyelocytes % 1 % (0-0) H Band Neutrophils 2 % (0-8) Platelet Estimate Adequate Platelet Morphology Normal Hypochromasia 1+ Anisocytosis 1+ Microcytosis 1+ Sodium Level 131 MMOL/L (136-145) L Potassium Level 3.8 MMOL/L (3.5-5.1) Chloride Level 100 MMOL/L (98-107) Carbon Dioxide Level 26 MMOL/L (21-32) Anion Gap 5 mmol/L (5-15) Blood Urea Nitrogen 12 mg/dL (7-18) Creatinine 1.1 MG/DL (0.55-1.30) Estimat Glomerular Filtration Rate mL/min (>60) Glucose Level 65 MG/DL (74-106) L Calcium Level 8.1 MG/DL (8.5-10.1) L Total Bilirubin 0.2 MG/DL (0.2-1.0) Aspartate Amino Transf (AST/SGOT) 10 U/L (15-37) L Alanine Aminotransferase (ALT/SGPT) 10 U/L (12-78) L Alkaline Phosphatase 88 U/L (46-116) Total Protein 6.3 G/DL (6.4-8.2) L Albumin 1.4 G/DL (3.4-5.0) L Globulin 4.9 g/dL Albumin/Globulin Ratio 0.3 (1.0-2.7) L Current Medications Medications (Trade) Dose Ordered Sig/Candice Route PRN Reason Start Time Stop Time Status Last Admin Dose Admin Acetaminophen (Tylenol) 650 mg Q4H PRN ORAL Mild Pain/Temp > 100.5 10/07/17 01:30 11/06/17 01:29 Atorvastatin Calcium (Lipitor) 10 mg BEDTIME ORAL 10/07/17 21:00 11/06/17 20:59 10/07/17 21:06 Baclofen (Lioresal) 10 mg THREE TIMES A DAY PRN ORAL for pain 10/07/17 01:30 11/06/17 01:29 Benazepril HCl (Lotensin) 20 mg DAILY ORAL 10/07/17 09:00 11/06/17 08:59 10/08/17 09:25 Bethanechol Chloride (Urecholine) 50 mg FOUR TIMES A DAY ORAL 10/07/17 09:00 11/06/17 08:59 10/08/17 13:38 Bisacodyl (Dulcolax) 10 mg DAILYPRN PRN RECTAL Constipation 10/07/17 01:30 11/06/17 01:29 10/08/17 13:39 Dextrose (Dextrose 50%) STAT PRN IV Hypoglycemia 10/07/17 02:15 11/06/17 02:14 Digoxin (Lanoxin) 0.125 mg DAILY ORAL 10/07/17 09:00 11/06/17 08:59 10/08/17 09:25 Docusate Sodium (Colace) 100 mg TWICE A DAY ORAL 10/07/17 09:00 11/06/17 08:59 10/08/17 09:25 Hydralazine HCl (Apresoline) 25 mg Q8H PRN ORAL high blood pressure 10/07/17 01:30 11/06/17 01:29 Insulin Aspart (NovoLOG) BEFORE MEALS AND HS SUBQ 10/07/17 06:30 11/06/17 06:29 10/07/17 21:17 Insulin Detemir (Levemir) 19 units BEDTIME SUBQ 10/07/17 21:00 11/06/17 20:59 10/07/17 21:11 Lactobacillus Acidophilus (Culturelle) 1 tab DAILY ORAL 10/07/17 09:00 11/06/17 08:59 10/08/17 09:25 Lactulose (Cephulac) 30 gm DAILY PRN ORAL constipation 10/07/17 01:30 11/06/17 01:29 Metoprolol Tartrate (Lopressor) 75 mg Q12HR ORAL 10/07/17 09:00 11/06/17 08:59 10/08/17 09:43 Multivitamins (Multivitamins) 1 tab DAILY ORAL 10/07/17 09:00 11/06/17 08:59 10/08/17 09:30 Ondansetron HCl (Zofran) 4 mg Q6H PRN IVP Nausea & Vomiting 10/07/17 01:30 11/06/17 01:29 Oxycodone/ Acetaminophen (Percocet 5-325) 1 tab Q4H PRN ORAL for pain 10/07/17 01:30 10/14/17 01:29 10/08/17 12:31 Pantoprazole (Protonix) 40 mg DAILY ORAL 10/07/17 09:00 11/06/17 08:59 10/08/17 09:24 Piperacillin Sod/ Tazobactam Sod 3.375 gm/Sodium Chloride 110 ml @ 27.5 mls/hr EVERY 8 HOURS IVPB 10/07/17 14:00 10/14/17 13:59 10/08/17 13:39 Rivaroxaban (Xarelto) 15 mg QPM ORAL 10/07/17 16:30 11/06/17 16:29 10/07/17 16:42 Sodium Chloride 1,000 ml @ 100 mls/hr Q10H IV 10/07/17 02:30 11/06/17 02:29 10/08/17 09:37 DONA VERA Oct 08, 2017 15:05
[2017-10-08 16:00] VITALS: BP 134/83
[2017-10-08] MEDS: Xarelto 15mg tab ORAL SCH (17:34)
[2017-10-08 20:00] VITALS: BP 131/77
[2017-10-08] MEDS: Levemir Flexpen SUBQ SCH (21:12)
--- NOTE | 2017-10-08 22:45 | Consultation ---
DATE OF CONSULTATION: 10/08/2017 INFECTIOUS DISEASES CONSULTATION REFERRING PHYSICIAN: Wilfrido Gonzalez M.D. REASON FOR CONSULTATION: Complicated gram-negative UTI, sepsis, leukocytosis, fevers and history of endocarditis. The patient's chief complaint coming in the hospital is complicated UTI, sepsis and weakness. HISTORY OF PRESENT ILLNESS: This is a 76-year-old female who has a history of endocarditis and osteomyelitis, status post full course treatment. The patient presents to [facility] with fevers and leukocytosis. Workup shows that she has gram-negative UTI, likely complicated UTI with sepsis, fevers and leukocytosis. Infectious Diseases consultation is requested for antibiotic management. The patient currently is on Zosyn. The patient has had fever and leukocytosis. Case discussed with RN. KAUR was noted. Notes were reviewed. The patient will be continued on Zosyn pending final workup at this time. PAST MEDICAL HISTORY: The patient has a past medical history of endocarditis and osteomyelitis. The patient has history of osteoporosis, atrial fibrillation, CHF, diabetes, dyslipidemia, stroke. She had osteomyelitis of the left third toe and as I discussed, endocarditis of the aortic valve, status post full treatment course. The patient has dyslipidemia, diabetes, dementia, anemia, and I am not clear if she has a history of hypertension at this time. She also comes in with dehydration. She is on hypertensive medications for possible history of hypertension as mentioned. MEDICATIONS: Upon the MAR, she is on the following medications, on atorvastatin and Lipitor. She is on Levemir. She is on Zosyn. She is on 02:22, multivitamins. She is on Urecholine, pantoprazole, docusate, metoprolol, lactobacillus, benazepril, insulin. She is on sodium chloride, acetaminophen, Bactroban, hydralazine, Zofran, bisacodyl, lactulose, and oxycodone. ALLERGIES: No known drug allergies. SOCIAL HISTORY: Negative for smoking, alcohol, or drug abuse. FAMILY HISTORY: Negative for exposure to tuberculosis or cancer. REVIEW OF SYSTEMS: CONSTITUTIONAL: She has generalized weakness, fatigue and fevers. No chills. HEAD AND NECK: No thrush. No dysphagia. CARDIAC: No chest pain. GASTROINTESTINAL: No nausea, vomiting, or diarrhea. GENITOURINARY: She has a Daniels. PULMONARY: No congestion or shortness of breath. SKIN: No rash or itching. EXTREMITY: No extremity pain. NEUROLOGIC: No seizures. PHYSICAL EXAMINATION: GENERAL: Alert and responsive, no acute distress. VITAL SIGNS: Temperature 97.5 degrees, pulse rate 75, respiratory rate 20, and blood pressure 144/60. Her T-max is 100.3 degrees. HEAD AND NECK: Oral exam, no thrush. Eye exam, no icterus. Normocephalic. No facial droop. No neck stiffness. Neck is supple. LUNGS: Clear bilaterally. No rhonchi or rales. HEART: Regular. No rubs, gallop, or murmur. ABDOMEN: Soft. Positive bowel sounds. SKIN: No obvious rash. MUSCULOSKELETAL: No effusion. Legs are without cellulitis. PERIPHERAL VASCULAR: No cellulitis or gangrene. GENITOURINARY: She has a Daniels. Urine is cloudy. LINES: Line sites without phlebitis. NEUROLOGIC: Generalized weakness and responsive. Wounds were reviewed. With regards to her wounds, it looks like possible sacral wound that is clean, probably resurfaced. No obvious toe wounds noted. LABORATORY AND DIAGNOSTIC DATA: White count as high as 13.2, now is 10.5 and hemoglobin 7.4. Creatinine is 1.1. Urinalysis had 3+ leukocyte esterase, moderate bacteria, 10-15 white blood cells. Blood cultures are negative today. Urine culture, greater than 100,000 gram-negative rods. Chest x-ray showed small effusion, but no consolidation or infiltrates. ASSESSMENT AND PLAN: 1. The patient has complicated gram-negative urinary tract infection with weakness. The patient likely has sepsis, leukocytosis, fevers and generalized weakness. She has history of endocarditis. Blood cultures are negative today. She has history of osteo third toe, but it seems to have resolved. The patient is status post full treatment for endocarditis and osteo. Continue Zosyn for gram-negative urinary tract infection and sepsis. Check final cultures. 2. The patient has possible history of hypertension. She is on antihypertensive medications. 3. Anemia. 4. Hyperlipidemia. 5. Diabetes. 6. Blood sugar, treatment per primary. 7. Congestive heart failure history. 8. History of cerebrovascular accident. 9. Osteoporosis. 10. Past medical history noted. 11. No known allergies. 12. Social history negative. 13. Family history noncontributory. 14. MAR was noted. 15. Case was discussed with RN. 16. Skin care protocol. 17. Continue treatment per primary consultants. 18. Orders were entered. 19. MAR was noted. 20. Notes and records were noted. Micheline Watters M.D. DR: LANDEN JOB#: [id number] CC:
[2017-10-09] VITALS: BP 163/65
[2017-10-09] MEDS: oxyCODONE HCL/Acetaminophen 5/325mg ORAL PRN ×5 (00:16→16:14)
[2017-10-09 04:00] VITALS: BP 146/65
[2017-10-09] MEDS: Piperacillin/Tazobactam 3.375 GM in NS 110 ML IVPB SCH ×3 (05:57→20:51)
[2017-10-09] MEDS: NovoLOG Insulin Flexpen SUBQ SCH ×4 (06:31→20:59)
[2017-10-09 08:08] VITALS: BP 135/69
[2017-10-09] MEDS: Lactobacillus-GG tablet ORAL SCH (08:32)
[2017-10-09] MEDS: Bethanechol 25mg Tab ORAL SCH ×5 (08:32→20:51)
[2017-10-09] MEDS: Docusate 100mg cap ORAL SCH ×2 (08:32→18:16)
[2017-10-09] MEDS: Digoxin 0.125mg tab ORAL SCH (08:41)
[2017-10-09 10:39] LABS: BASOPHILS % (AUTO) 0.7 % (0.0-2.0); EOSINOPHILS % (AUTO) 2.5 % (0.0-3.0); HEMATOCRIT 30.2 % (37.0-47.0); HEMOGLOBIN 9.7 G/DL (12.0-16.0); LYMPHOCYTES % (AUTO) 17.8 % (20.0-45.0); MEAN CORPUSCULAR VOLUME 79 FL (80-99); MONOCYTES % (AUTO) 6.8 % (1.0-10.0); NEUTROPHILS % (AUTO) 72.3 % (45.0-75.0); PLATELET COUNT 497 K/UL (150-450); RED BLOOD COUNT 3.83 M/UL (4.20-5.40); RED CELL DISTRIBUTION WIDTH 15.8 % (11.6-14.8); WHITE BLOOD COUNT 11.1 K/UL (4.8-10.8)
[2017-10-09 11:01] LABS: ANION GAP 11 mmol/L (5-15); BLOOD UREA NITROGEN 10 mg/dL (7-18); CALCIUM 6.8 MG/DL (8.5-10.1); CARBON DIOXIDE 20 MMOL/L (21-32); CHLORIDE 100 MMOL/L (98-107); POTASSIUM 4.8 MMOL/L (3.5-5.1); SODIUM 131 MMOL/L (136-145)
--- NOTE | 2017-10-09 12:58 | General Progress Note ---
Assessment/Plan Problem List: (1) Anemia ICD Codes: D64.9 - Anemia, unspecified SNOMED: 676662867 Qualifiers: Qualified Codes: D64.9 - Anemia, unspecified (2) Dehydration ICD Codes: E86.0 - Dehydration SNOMED: 15427990 (3) UTI (urinary tract infection) ICD Codes: N39.0 - Urinary tract infection, site not specified SNOMED: 99593765 Qualifiers: Qualified Codes: N39.0 - Urinary tract infection, site not specified Status: stable, progressing Assessment/Plan iv Abx follow up ucx ct spine monitor h/h check stool ob transfuse Subjective ROS Limited/Unobtainable: No Constitutional: Reports: malaise, weakness HEENT: Reports: no symptoms Cardiovascular: Reports: no symptoms Respiratory: Reports: no symptoms Gastrointestinal/Abdominal: Reports: no symptoms Genitourinary: Reports: no symptoms Neurologic/Psychiatric: Reports: no symptoms Endocrine: Reports: no symptoms Hematologic/Lymphatic: Reports: anemia Allergies: Coded Allergies: No Known Allergies (Unverified , 10/06/17) All Systems: reviewed and negative except above Subjective no events. feels better. ucx noted. s/p 1 unit prbcs. no bleeding noted. Objective Last 24 Hour Vital Signs Date Time Temp Pulse Resp B/P (MAP) Pulse Ox O2 Delivery O2 Flow Rate FiO2 10/09/17 08:41 54 10/09/17 08:35 135/69 10/09/17 08:08 98.2 52 20 135/69 98 Room Air 98.2 10/09/17 04:00 97.3 56 18 146/65 98 97.3 10/09/17 00:00 97.6 50 20 163/65 97 97.6 10/08/17 20:00 97.7 57 20 131/77 98 97.7 10/08/17 16:00 97.6 55 20 134/83 98 97.6 Intake and Output 10/08/17 10/09/17 19:00 07:00 Intake Total 887.5 ml 1337.5 ml Output Total 200 ml 1000 ml Balance 687.5 ml 337.5 ml Intake Oral 650 ml IV Total 237.5 ml 1337.5 ml Output Urine Total 200 ml 1000 ml Laboratory Tests 10/09/17 09:48: White Blood Count 11.1H, Red Blood Count 3.83L, Hemoglobin 9.7#L, Hematocrit 30.2#L, Mean Corpuscular Volume 79L, Mean Corpuscular Hemoglobin 25.4L, Mean Corpuscular Hemoglobin Concent 32.2, Red Cell Distribution Width 15.8H, Platelet Count 497H, Mean Platelet Volume 5.9L, Neutrophils (%) (Auto) 72.3, Lymphocytes (%) (Auto) 17.8L, Monocytes (%) (Auto) 6.8, Eosinophils (%) (Auto) 2.5, Basophils (%) (Auto) 0.7, Sodium Level 131L, Potassium Level 4.8, Chloride Level 100, Carbon Dioxide Level 20L, Anion Gap 11, Blood Urea Nitrogen 10, Creatinine 1.0, Estimat Glomerular Filtration Rate , Glucose Level 92, Calcium Level 6.8L Height (Feet): 5 Height (Inches): 3.00 Weight (Pounds): 130 General Appearance: WD/WN, alert Neck: supple Cardiovascular: regular rhythm Respiratory/Chest: lungs clear Abdomen: normal bowel sounds, non tender, soft, no organomegaly Edema: no edema noted Arm (L), no edema noted Arm (R), no edema noted Leg (L), no edema noted Leg (R), no edema noted Pedal (L), no edema noted Pedal (R), no edema noted Generalized Neurologic: 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
[2017-10-09 16:00] VITALS: BP 157/85
[2017-10-09] MEDS: Xarelto 15mg tab ORAL SCH (16:15)
--- NOTE | 2017-10-09 17:04 | Diagnostic Imaging Report ---
Indication: Pain Technique: CT of the abdomen and pelvis utilizing automated exposure control without intravenous contrast. Oral contrast was administered CT dose: Total DLP 1198.05 mGycm; CTDI vol 12.77,14.96 mGy Comparison: None Findings: Please note that evaluation of the abdominal and pelvic viscera is limited without the use of intravenous contrast. Within these limitations, the following observations are made: Images through the lower chest demonstrate small to moderate bilateral pleural effusions with dense bibasilar atelectasis/consolidation, left greater than right. The heart is enlarged. There are dense mitral annular calcifications. Coronary arterial and aortic valvular calcifications also noted. There is hypoattenuation of the blood pool relative to the intraventricular septum suggesting anemia. The gallbladder is contracted, likely related to postprandial state. Liver is unremarkable. Punctate calcification noted within the spleen, possibly related to prior granulomatous exposure. Adrenal glands and pancreas grossly unremarkable. Kidneys are symmetric in size and attenuation. There is no urinary tract stone or hydronephrosis bilaterally. The bladder is decompressed by Daniels catheter. The uterus is atrophic. An intrauterine device is noted (Lippes loop configuration). Adnexa not definitively visualized. There is no evidence of free intraperitoneal air. No bowel obstruction. There is a small hiatal hernia. Reflux of contrast is noted into the thoracic esophagus. There is copious stool distending the rectum with some presacral edema suggesting fecal impaction with possible Stercoral colitis. Abdominal aorta is normal in caliber. Multiple small mesenteric and retroperitoneal lymph nodes are seen, none pathologically enlarged by imaging size criteria however evaluation limited without contrast. The bones are diffusely demineralized. There are multilevel degenerative changes of the spine with severe compression deformity at T12 with mild bony retropulsion. There is grade 1 anterolisthesis of L4 on L5. There is mild compression deformity of the superior endplate of the L3 and L4 vertebral bodies.. IMPRESSION: * Findings compatible with a fecal impaction with possible early stercoral colitis. * Osteopenia with multilevel degenerative change of the lumbar spine with severe, age indeterminate compression deformity of the T12 vertebral body. * Small hiatal hernia with reflux of contrast into the thoracic esophagus. This may place patient at risk for aspiration. * Gallbladder contraction limits evaluation. If there is concern for gallbladder pathology, recommend right upper quadrant ultrasound. * [id number] bilateral pleural effusions and dense atelectasis/consolidation in the bilateral lower lobes, left greater than right. Pneumonia should be excluded clinically. * Cardiomegaly and coronary artery disease. * Findings suggestive of anemia. * Intrauterine device in place. Additional findings as above. The CT scanner at [facility] is accredited by the [employer] and the scans are performed using protocols designed to limit radiation exposure to as low as reasonably achievable to attain images of sufficient resolution adequate for diagnostic evaluation.
--- NOTE | 2017-10-09 17:15 | Diagnostic Imaging Report ---
Indication: Pain Technique: CT lumbar spine was performed utilizing automated exposure control without intravenous contrast material. Axial, sagittal, coronal images were generated. CT dose: Total DLP 1198.05 mGycm; CTDI vol 12.77,14.96 mGy Comparison: None Findings: There are 5 nonrib-bearing lumbar-type vertebral bodies, assuming 12 paired ribs. There is sacralization of L5. There is osteopenia, which appears severe. There is a severe compression deformity of the T12 vertebral body, age indeterminant. There is mild retropulsion of bony fragments indenting the thecal sac and resulting in at least moderate central canal narrowing at this level. Please note that cord, disks and nerve roots are best evaluated on MRI. There is mild superior endplate depression of the L3 and L4 vertebral bodies. There is grade 1 anterolisthesis of L4 on L5 and of L5 on S1. These are by means of degenerative change as no definitive pars fracture is identified. There are multiple level degenerative changes with likely Schmorl's nodes at T11 and L1. No paravertebral soft tissue abnormality or collection is identified. Please see portable concurrent CT of the abdomen for discussion of nonosseous findings of the lower chest and abdomen. IMPRESSION: Severe, age indeterminate compression deformity of the T12 vertebral body with retropulsion of bony fragments resulting in at least moderate canal stenosis at this level. Please note that the cord, disks and nerve roots are not well evaluated on CT. MRI can be obtained for better evaluation as clinically indicated. Mild superior endplate depression of the L3 and L4 vertebral bodies. Severe osteopenia and multilevel degenerative change of the spine. The CT scanner at [facility] is accredited by the [employer] and the scans are performed using protocols designed to limit radiation exposure to as low as reasonably achievable to attain images of sufficient resolution adequate for diagnostic evaluation.
--- NOTE | 2017-10-09 17:21 | Diagnostic Imaging Report ---
Indication: Pain Technique: CT thoracic spine was performed utilizing automated exposure control without intravenous contrast material. Axial, sagittal, coronal images were generated. CT dose: Total DLP 1120.75 mGycm; CTDI vol 28.82 mGy Comparison: None Findings: There are 12 paired thoracic ribs. There is no significant thoracic scoliosis. There are multilevel degenerative changes of the thoracic spine. Please note that the cord and nerve roots are better evaluated on MRI. Severe compression deformity of the T12 vertebral body with retropulsion noted, as described on the concurrent lumbar spine CT. No additional thoracic vertebral compression fracture identified. Bilateral pleural effusions and bibasilar consolidations partially visualized thoracic aorta appears normal in caliber and mildly calcified. Small retroperitoneal lymph nodes are seen. Please see dedicated reports of concurrent CT of the lumbar spine and CT of the abdomen and pelvis. IMPRESSION: Severe age-indeterminate compression fracture of the T12 vertebral body with retropulsion of bony fragments resulting in at least moderate canal stenosis at this level. No additional thoracic vertebral compression fracture identified. Likely severe osteopenia. Additional findings as above. The CT scanner at [facility] is accredited by the [employer] and the scans are performed using protocols designed to limit radiation exposure to as low as reasonably achievable to attain images of sufficient resolution adequate for diagnostic evaluation.
[2017-10-09 20:00] VITALS: BP 146/84
[2017-10-09] MEDS: Levemir Flexpen SUBQ SCH (20:58)
[2017-10-10] VITALS: BP 132/74
[2017-10-10] MEDS: oxyCODONE HCL/Acetaminophen 5/325mg ORAL PRN ×2 (03:56→11:24)
[2017-10-10 04:00] VITALS: BP 149/90
[2017-10-10] MEDS: Piperacillin/Tazobactam 3.375 GM in NS 110 ML IVPB SCH (05:55)
[2017-10-10] MEDS: NovoLOG Insulin Flexpen SUBQ SCH ×2 (06:30→11:30)
[2017-10-10 07:34] LABS: BASOPHILS % (AUTO) 0.5 % (0.0-2.0); HEMATOCRIT 28.2 % (37.0-47.0); HEMOGLOBIN 9.4 G/DL (12.0-16.0); LYMPHOCYTES % (AUTO) 11.1 % (20.0-45.0); MEAN CORPUSCULAR VOLUME 79 FL (80-99); MONOCYTES % (AUTO) 4.8 % (1.0-10.0); NEUTROPHILS % (AUTO) 82.7 % (45.0-75.0); PLATELET COUNT 453 K/UL (150-450); RED BLOOD COUNT 3.59 M/UL (4.20-5.40); RED CELL DISTRIBUTION WIDTH 16.1 % (11.6-14.8); WHITE BLOOD COUNT 12.5 K/UL (4.8-10.8)
[2017-10-10 07:53] LABS: ALANINE AMINOTRANSFERASE 10 U/L (12-78); ALBUMIN 1.4 G/DL (3.4-5.0); ALBUMIN/GLOBULIN RATIO 0.3 (1.0-2.7); ALKALINE PHOSPHATASE 83 U/L (46-116); ANION GAP 8 mmol/L (5-15); ASPARTATE AMINO TRANSFERASE 10 U/L (15-37); BILIRUBIN,TOTAL 0.2 MG/DL (0.2-1.0); BLOOD UREA NITROGEN 7 mg/dL (7-18); CALCIUM 7.8 MG/DL (8.5-10.1); CARBON DIOXIDE 24 MMOL/L (21-32); CHLORIDE 102 MMOL/L (98-107); POTASSIUM 3.6 MMOL/L (3.5-5.1); SODIUM 134 MMOL/L (136-145)
[2017-10-10] MEDS ORDERED: CIPRO250 MG ORAL (07:56)
[2017-10-10 08:15] VITALS: BP 142/67
[2017-10-10] MEDS: Lactobacillus-GG tablet ORAL SCH (09:28)
[2017-10-10] MEDS: Docusate 100mg cap ORAL SCH (09:28)
[2017-10-10] MEDS: Bethanechol 25mg Tab ORAL SCH ×2 (09:29→13:09)
[2017-10-10] MEDS: Digoxin 0.125mg tab ORAL SCH (09:33)
[2017-10-10 12:20] VITALS: BP 159/76
[2017-10-10 13:10] VITALS: BP 167/97
[2017-10-10] MEDS ORDERED: NS 275ml ONE (13:42)
--- NOTE | 2017-10-10 23:32 | Discharge Summary ---
DATE OF ADMISSION: 10/06/2017 DATE OF DISCHARGE: 10/10/2017 ADMISSION DIAGNOSES: 1. History of osteomyelitis and endocarditis. 2. Hypertension. 3. Chronic anemia. 4. Diabetes. 5. Dyslipidemia. 6. Congestive heart failure. DISCHARGE DIAGNOSES: 1. History of osteomyelitis and endocarditis. 2. Hypertension. 3. Chronic anemia. 4. Diabetes. 5. Dyslipidemia. 6. Congestive heart failure. HOSPITAL COURSE: The patient is a pleasant 76-year-old female, who was admitted with complaints of generalized weakness, malaise, and dysuria. She was diagnosed with UTI. She has a complicated past medical history that includes a history of osteomyelitis and endocarditis. She had just completed her treatment for endocarditis. She was admitted. She was found to have UTI sensitive to antibiotics. She was anemic and required transfusion. She had no signs of any bleeding. CT scan of the abdomen showed only some constipation and CT of the spine showed multiple old compression fractures. There is no sign of any epidural abscess. On discharge, the patient was stable. She will be discharged and complete antibiotic therapy as an outpatient. The case was discussed with the [facility]'s [facility]. I recommended that follow up with CBCs and stool occult blood. She may require further workup and GI referral if she continues to have unexplained iron deficiency anemia or occult positive stools. DISCHARGE MEDICATIONS: Please see discharge medication list for discharge medications. DIET: Cardiac diet. ACTIVITIES: Ad-sushila. Wilfrido Gonzalez M.D. DR: BRIGID JOB#: [id number] CC:
== END 2017-10-10 13:43 | DRG 690 ==
LOC: EDBD 17:06 → EMR 17:45 → 4E 21:02 → EDBEDREQ 21:59
PROC: 30233N1 Transfusion of Nonautologous Red Blood Cells into Peripheral Vein, Percutaneous Approach (ICD-10-PCS; principal; 2017-10-08)
DX: N39.0 Urinary tract infection, site not specified (principal); I50.9 Heart failure, unspecified; E87.1 Hypo-osmolality and hyponatremia; E11.9 Type 2 diabetes mellitus without complications; B96.89 Other specified bacterial agents as the cause of diseases classified elsewhere; I48.91 Unspecified atrial fibrillation; E86.0 Dehydration; I10 Essential (primary) hypertension; E78.5 Hyperlipidemia, unspecified; D50.9 Iron deficiency anemia, unspecified; M81.0 Age-related osteoporosis without current pathological fracture; Z86.73 Personal history of transient ischemic attack (TIA), and cerebral infarction without residual deficits; S22.088D Other fracture of T11-T12 vertebra, subsequent encounter for fracture with routine healing; W19.XXXD Unspecified fall, subsequent encounter
CPT/HCPCS: 36415; 71045; 72128; 72131; 74176; 80048; 80053; 81003; 82550; 82553; 82962; 83540; 83550; 83605; 83880; 84484; 85007; 85025; 86850; 86900; 86901; 86920; 87040; 87081; 87086; 87181; 93005; 93306; 99285; J1815; J2405; S5561